=== PATIENT | female | born 1990 | race Two or more races ===

== ENCOUNTER 2018-03-16 22:09 | Emergency (ER) | payer MEDICAID ==
[~2018-03-16] VITALS: Ht 167.6 cm; Wt 84.4 kg
[2018-03-16 23:36] VITALS: Ht 167.6 cm; Wt 84.4 kg
[2018-03-17 03:22] VITALS: BP 107/56
== END 2018-03-17 03:22 | disposition home or self-care (01) ==
LOC: ED 22:09
DX: L50.0 Allergic urticaria (principal)
CPT/HCPCS: J1200; J2930; J3490; J7030